=== PATIENT | male | born 1945 | race Caucasian/White ===

== ENCOUNTER 2018-09-11 11:36 | Inpatient (IN) ==
[2018-09-11] MEDS ORDERED: ATROPINE 1 MG/10 ML SYRINGE IV STA ×2 (12:13→12:32)
[2018-09-11 12:27] LABS: Basophils % 0.4 % (0.0-0.8); Eosinophils # 0.1 10*3/uL (0.0-0.87); Eosinophils % 0.9 % (0.00-10.9); Hematocrit 26.5 VOL% (42.0-52.0); Hemoglobin 8.5 GM/DL (14.0-18.0); Immature Granulocytes % 0.8 %; Immature Granulocytes Absolute 0.06 #; Lymphocytes # 1.1 10*3/uL (1.4-4.0); Lymphocytes % 13.4 % (21.2-54.2); Mean Corpuscular HGB Conc 32.1 GM/DL (32-36); Mean Corpuscular Hemoglobin 29 PG (27-34); Mean Corpuscular Volume 91.4 FL (87-102); Monocytes # 0.4 10*3/uL (0.11-0.8); Monocytes % 5.2 % (1.7-12.7); Neutrophils # 6.3 10*3/uL (1.4-7.4); Neutrophils % 79.3 % (38.7-73.9); Platelet Count 147 T/CUMM (130-400); Red Cell Distribution Width 15.9 % (9.3-17.3); White Blood Count 7.9 T/CUMM (4-12)
[2018-09-11 13:17] LABS: Osmolality,Calculated 269.1 MOS/KG (273-304); Potassium 4.7 MMOL/L (3.5-5.1); Thyroid Stimulating Hormone 7.02 uIU/ml (0.358-3.74)
[2018-09-11] MEDS ORDERED: ATROPINE 1 MG/10 ML SYRINGE IV PRN (14:27)
[2018-09-11] MEDS ORDERED: ONDANSETRON 4 MG/2 ML VIAL IV PRN (14:27)
[2018-09-11] MEDS ORDERED: ALBUTEROL/IPRATROPIUM 3 ML NEB RESP TX PRN (14:27)
[2018-09-11] MEDS ORDERED: ALBUTEROL 2.5 MG/3 ML NEB RESP TX PRN (14:27)
[2018-09-11] MEDS ORDERED: TEMAZEPAM 7.5 MG CAPSULE PO PRN (14:30)
[2018-09-11] MEDS ORDERED: SODIUM CHLORIDE 0.9% 1,000 ML IV PRN (14:34)
[2018-09-11 15:11] LABS: Apearance,Urine CLEAR (Clear); Bilirubin,Urine Negative (Negative); Blood, Urine Negative (Negative); Glucose,Urine (UA) Negative (Negative); Hyaline Casts,Urine 1 /LPF (0-3); Ketones,Urine Negative (Negative); Mucus,Urine Occasional /LPF (Occasional); Nitrite,Urine Negative (Negative); Protein,Urine Negative; RBC,Urine <1 /HPF (0-4); Urine Color Yellow (Yellow); Urine Specific Gravity 1.011 (1.001-1.035); Urine Urobilinogen < 2.0 EU/DL (0.2-1.0); WBC,Urine <1 /HPF (0-6)
[2018-09-11 16:13] LABS: Risk Ratio 2.98; VLDL CHOLESTEROL 18.6 MG/DL
[2018-09-11] MEDS: GLIMEPIRIDE 2 MG TABLET PO SCH (17:59)
[2018-09-11] MEDS: PREGABALIN 100 MG CAPSULE PO SCH ×3 (18:00→21:01)
[2018-09-11] MEDS ORDERED: ceFAZolin 1,000 MG in SYRINGE 1 EACH IV ONE (18:02)
[2018-09-11] MEDS ORDERED: ENOXAPARIN 40 MG/0.4 ML SYRINGE SUBCUT SCH (21:00)
[2018-09-11] MEDS: FUROSEMIDE 40 MG/4 ML VIAL IV SCH (21:00)
[2018-09-11] MEDS: DULoxetine 30 MG CAPSULE PO SCH (21:01)
[2018-09-11] MEDS: metOLazone 5 MG TABLET PO SCH (21:01)
[2018-09-11] MEDS: ROSUVASTATIN 20 MG TABLET PO SCH (21:01)
[2018-09-11] MEDS: LACTULOSE 20 GM/30 ML UDCUP PO SCH (21:02)
[2018-09-11] MEDS: TAMSULOSIN 0.4 MG CAPSULE PO SCH (21:02)
[2018-09-11] MEDS: oxyCODONE/ACETAMINOPHEN 5-325 MG TABLET PO PRN (21:02)
[2018-09-11] MEDS: DOCUSATE SODIUM 100 MG CAPSULE PO SCH (21:02)
[2018-09-12 05:23] LABS: Basophils # 0.1 10*3/uL (0.0-0.2); Basophils % 0.8 % (0.0-0.8); Eosinophils # 0.1 10*3/uL (0.0-0.87); Eosinophils % 1.5 % (0.00-10.9); Hematocrit 32.5 VOL% (42.0-52.0); Hemoglobin 10.4 GM/DL (14.0-18.0); Immature Granulocytes % 0.6 %; Immature Granulocytes Absolute 0.05 #; Lymphocytes # 1.5 10*3/uL (1.4-4.0); Mean Corpuscular Hemoglobin 29 PG (27-34); Mean Corpuscular Volume 90.3 FL (87-102); Mean Platelet Volume 10.2 FL (9.6-12.0); Monocytes # 0.6 10*3/uL (0.11-0.8); Monocytes % 7.1 % (1.7-12.7); Neutrophils # 5.5 10*3/uL (1.4-7.4); Platelet Count 167 T/CUMM (130-400); Red Cell Distribution Width 15.6 % (9.3-17.3); White Blood Count 7.8 T/CUMM (4-12)
[2018-09-12 05:33] LABS: INR 0.9
[2018-09-12 05:51] LABS: Calcium 8.7 MG/DL (8.5-10.1); Osmolality,Calculated 269.5 MOS/KG (273-304); Potassium 3.6 MMOL/L (3.5-5.1)
[2018-09-12 05:57] LABS: Bilirubin,Total 1.2 MG/DL (0.2-1.0); Calcium 8.7 MG/DL (8.5-10.1); Osmolality,Calculated 267.7 MOS/KG (273-304); Potassium 3.6 MMOL/L (3.5-5.1); Total Protein 6.6 G/DL (6.4-8.3)
[2018-09-12 06:00] LABS: Free T4 (Free Thyroxine) 1.08 NG/DL (0.76-1.46)
[2018-09-12] MEDS ORDERED: ceFAZolin 1,000 MG in SYRINGE 1 EACH IV ONE (06:30)
[2018-09-12] MEDS ORDERED: HEPARIN/NACL 0.9% 2 UNITS/ML 1,000 ML IV ONE (07:46)
[2018-09-12] MEDS ORDERED: LIDOCAINE 1% 20 ML VIAL ONE (07:46)
[2018-09-12] MEDS ORDERED: fentaNYL 100 MCG/2 ML VIAL ONE ×2 (08:08→08:25)
[2018-09-12] MEDS ORDERED: MIDAZOLAM 2 MG/2 ML VIAL ONE ×2 (08:08→08:25)
[2018-09-12] MEDS ORDERED: HEPARIN 5,000 UNIT/1 ML VIAL ONE (08:29)
[2018-09-12] MEDS ORDERED: HEPARIN/NACL 0.9% 2 UNITS/ML 500 ML IV ONE (09:04)
[2018-09-12] MEDS ORDERED: ACETAMINOPHEN 325 MG TABLET PO PRN (09:35)
[2018-09-12] MEDS ORDERED: GLUCAGON 1 MG VIAL IM PRN (09:35)
[2018-09-12] MEDS ORDERED: DEXTROSE 50% 25 GM/50 ML SYRINGE IV PRN (09:35)
[2018-09-12] MEDS: TAMSULOSIN 0.4 MG CAPSULE PO SCH ×2 (11:04→23:32)
[2018-09-12] MEDS: DOCUSATE SODIUM 100 MG CAPSULE PO SCH ×2 (11:04→23:34)
[2018-09-12] MEDS: DULoxetine 30 MG CAPSULE PO SCH ×2 (11:04→23:34)
[2018-09-12] MEDS: GLIMEPIRIDE 2 MG TABLET PO SCH ×2 (11:04→16:58)
[2018-09-12] MEDS: PREGABALIN 100 MG CAPSULE PO SCH ×3 (11:04→23:34)
[2018-09-12] MEDS: ASPIRIN EC 81 MG TABLET PO SCH (11:05)
[2018-09-12] MEDS: POLYETHYLENE GLYCOL POWDER 17 GM PACK PO SCH (11:05)
[2018-09-12] MEDS: LEVOTHYROXINE 75 MCG TABLET PO SCH (11:05)
[2018-09-12] MEDS: FUROSEMIDE 40 MG/4 ML VIAL IV SCH ×2 (11:13→16:58)
[2018-09-12] MEDS: METOPROLOL TARTRATE 50 MG TABLET PO SCH ×2 (11:28→23:33)
[2018-09-12] MEDS: metOLazone 5 MG TABLET PO SCH (12:13)
[2018-09-12] MEDS: IBUPROFEN 400 MG TABLET PO PRN ×2 (15:28→23:43)
[2018-09-12] MEDS: LACTULOSE 20 GM/30 ML UDCUP PO SCH ×2 (15:32→23:35)
[2018-09-12] MEDS: oxyCODONE/ACETAMINOPHEN 5-325 MG TABLET PO PRN (23:31)
[2018-09-12] MEDS: ROSUVASTATIN 20 MG TABLET PO SCH (23:32)
[2018-09-13] MEDS ORDERED: BUTALBITAL/ACETAMIN/CAFFEINE 50-325-40 MG TABLET PO PRN (01:52)
[2018-09-13 05:49] LABS: Basophils # 0.1 10*3/uL (0.0-0.2); Basophils % 0.7 % (0.0-0.8); Eosinophils # 0.1 10*3/uL (0.0-0.87); Eosinophils % 1.5 % (0.00-10.9); Hematocrit 35.6 VOL% (42.0-52.0); Hemoglobin 11.5 GM/DL (14.0-18.0); Immature Granulocytes Absolute 0.07 #; Lymphocytes # 1.6 10*3/uL (1.4-4.0); Lymphocytes % 21.6 % (21.2-54.2); Mean Corpuscular HGB Conc 32.3 GM/DL (32-36); Mean Corpuscular Hemoglobin 29 PG (27-34); Mean Corpuscular Volume 88.6 FL (87-102); Mean Platelet Volume 9.8 FL (9.6-12.0); Monocytes # 0.8 10*3/uL (0.11-0.8); Monocytes % 11.4 % (1.7-12.7); Neutrophils # 4.6 10*3/uL (1.4-7.4); Neutrophils % 63.8 % (38.7-73.9); Platelet Count 172 T/CUMM (130-400); Red Blood Count 4.02 MC/CUMM (3.8-5.5); Red Cell Distribution Width 15.4 % (9.3-17.3); White Blood Count 7.3 T/CUMM (4-12)
[2018-09-13 05:53] LABS: Calcium 8.8 MG/DL (8.5-10.1); Osmolality,Calculated 259.8 MOS/KG (273-304); Potassium 2.9 MMOL/L (3.5-5.1)
[2018-09-13] MEDS: LEVOTHYROXINE 75 MCG TABLET PO SCH (06:32)
[2018-09-13] MEDS: IBUPROFEN 400 MG TABLET PO PRN (06:33)
[2018-09-13] MEDS: POTASSIUM CHLORIDE 20 MEQ TABLET PO SCH ×2 (08:07→11:04)
[2018-09-13] MEDS: DULoxetine 30 MG CAPSULE PO SCH (09:22)
[2018-09-13] MEDS: ASPIRIN EC 81 MG TABLET PO SCH (09:22)
[2018-09-13] MEDS: LACTULOSE 20 GM/30 ML UDCUP PO SCH (09:22)
[2018-09-13] MEDS: TAMSULOSIN 0.4 MG CAPSULE PO SCH (09:22)
[2018-09-13] MEDS: GLIMEPIRIDE 2 MG TABLET PO SCH (09:22)
[2018-09-13] MEDS: PREGABALIN 100 MG CAPSULE PO SCH (09:22)
[2018-09-13] MEDS: DOCUSATE SODIUM 100 MG CAPSULE PO SCH (09:22)
[2018-09-13] MEDS: METOPROLOL TARTRATE 50 MG TABLET PO SCH (09:22)
[2018-09-13] MEDS: POLYETHYLENE GLYCOL POWDER 17 GM PACK PO SCH (09:23)
[2018-09-13] MEDS ORDERED: FUROSEMIDE 20 MG TABLET PO SCH (12:00)
[2018-09-13] MEDS ORDERED: DABIGATRAN 75 MG CAPSULE PO SCH (12:00)
[2018-09-13 12:05] VITALS: BP 140/83
[2018-09-13] MEDS: oxyCODONE/ACETAMINOPHEN 5-325 MG TABLET PO PRN (12:16)
== END 2018-09-13 13:37 | disposition home or self-care (01) | DRG 228 ==
LOC: N.ED 11:36 → SUATTDRO 14:27 → N.EDINP 14:27 → N.CC 16:14 → N.TELES 09-12 10:22
PROVIDERS: ADMIT Family Medicine; ATTEND Internal Medicine
PROC: CLMICRA (2018-09-12 08:15)

== ENCOUNTER 2018-09-14 10:04 | Observation (INO) ==
[2018-09-14] MEDS ORDERED: FUROSEMIDE 100 MG/10 ML VIAL IV STA (10:31)
[2018-09-14] MEDS ORDERED: ONDANSETRON 4 MG/2 ML VIAL IV STA (10:31)
[2018-09-14 11:02] LABS: Basophils # 0.1 10*3/uL (0.0-0.2); Basophils % 0.8 % (0.0-0.8); Eosinophils # 0.1 10*3/uL (0.0-0.87); Eosinophils % 1.5 % (0.00-10.9); Hematocrit 38.1 VOL% (42.0-52.0); Hemoglobin 12.8 GM/DL (14.0-18.0); Immature Granulocytes % 3.9 %; Immature Granulocytes Absolute 0.28 #; Lymphocytes # 1.6 10*3/uL (1.4-4.0); Lymphocytes % 22.9 % (21.2-54.2); Mean Corpuscular HGB Conc 33.6 GM/DL (32-36); Mean Corpuscular Hemoglobin 29 PG (27-34); Mean Platelet Volume 9.8 FL (9.6-12.0); Monocytes # 0.8 10*3/uL (0.11-0.8); Monocytes % 10.5 % (1.7-12.7); Neutrophils # 4.3 10*3/uL (1.4-7.4); Neutrophils % 60.4 % (38.7-73.9); Platelet Count 200 T/CUMM (130-400); Red Blood Count 4.48 MC/CUMM (3.8-5.5); Red Cell Distribution Width 14.8 % (9.3-17.3); White Blood Count 7.1 T/CUMM (4-12)
[2018-09-14 11:12] LABS: PT Patient Result 10.9 SECS; Partial Thromboplastin Time 30.1 SECS (0-40)
[2018-09-14 11:22] LABS: ABG Base Excess 8.2 MMOL/L (-2.5-2.5); ABG HCO3 31.8 MMOL/L (20-26); ABG Oxygen Saturation 94.3 % (95-100); ABG PCO2 30.5 MM HG (35-48); ABG PO2 62.9 MM HG (80-95); ABG TCO2 25.5 MMOL/L (23-27)
[2018-09-14 11:26] LABS: ABG PH 7.595 (7.35-7.45)
[2018-09-14 11:26] LABS: Albumin 3.7 G/DL (3.4-5.0); Bilirubin,Total 0.7 MG/DL (0.2-1.0); Calcium 9.3 MG/DL (8.5-10.1); Osmolality,Calculated 250.8 MOS/KG (273-304); Potassium 2.9 MMOL/L (3.5-5.1); Total Protein 7.3 G/DL (6.4-8.3)
[2018-09-14] MEDS ORDERED: BISACODYL 5 MG TABLET PO PRN (14:15)
[2018-09-14] MEDS ORDERED: MAGNESIUM SULF RIDER 2 GM in PREMIX 1 EACH IV PRN ×2 (14:15→14:26)
[2018-09-14] MEDS ORDERED: MAGNESIUM SULF RIDER 4 GM in PREMIX 1 EACH IV PRN ×2 (14:15→14:26)
[2018-09-14] MEDS ORDERED: guaiFENesin/DM ER 600-30 MG TABLET PO PRN (14:15)
[2018-09-14] MEDS ORDERED: KETOROLAC 30 MG/1 ML VIAL IV ONE (17:00)
[2018-09-14] MEDS ORDERED: MAGNESIUM SULF RIDER 2 GM in PREMIX 1 EACH IV ONE (17:05)
[2018-09-14] MEDS ORDERED: DEXTROSE 50% 25 GM/50 ML SYRINGE IV PRN (17:12)
[2018-09-14] MEDS ORDERED: GLUCAGON 1 MG VIAL IM PRN (17:12)
[2018-09-14] MEDS: POTASSIUM CHLORIDE 20 MEQ TABLET PO PRN ×2 (17:30→19:54)
[2018-09-14 18:29] LABS: Troponin I 0.316 NG/ML (0.00-0.045)
[2018-09-14] MEDS ORDERED: ENOXAPARIN 40 MG/0.4 ML SYRINGE SUBCUT SCH (21:00)
[2018-09-14 21:39] LABS: Troponin I 0.303 NG/ML (0.00-0.045)
[2018-09-14] MEDS: LACTULOSE 20 GM/30 ML UDCUP PO SCH (21:57)
[2018-09-14] MEDS: METOPROLOL TARTRATE 50 MG TABLET PO SCH (21:58)
[2018-09-14] MEDS: TAMSULOSIN 0.4 MG CAPSULE PO SCH (21:59)
[2018-09-14] MEDS: GLIMEPIRIDE 2 MG TABLET PO SCH (21:59)
[2018-09-14] MEDS: POTASSIUM CHLORIDE 20 MEQ TABLET PO SCH (21:59)
[2018-09-14] MEDS: ROSUVASTATIN 20 MG TABLET PO SCH (21:59)
[2018-09-14] MEDS: INSULIN LISPRO 100 UNIT/ML SUBCUT SCH (22:02)
[2018-09-14] MEDS: TEMAZEPAM 7.5 MG CAPSULE PO PRN (22:46)
[2018-09-15] MEDS: ACETAMINOPHEN 325 MG TABLET PO PRN ×2 (01:12→23:45)
[2018-09-15 04:55] LABS: ABG Base Excess 7.2 MMOL/L (-2.5-2.5); ABG HCO3 30.9 MMOL/L (20-26); ABG Oxygen Saturation 97.3 % (95-100); ABG PCO2 37.6 MM HG (35-48); ABG PH 7.516 (7.35-7.45); ABG PO2 90.5 MM HG (80-95); ABG TCO2 26.4 MMOL/L (23-27); Allen Test Positive
[2018-09-15 05:11] LABS: Basophils # 0.1 10*3/uL (0.0-0.2); Basophils % 0.8 % (0.0-0.8); Eosinophils # 0.1 10*3/uL (0.0-0.87); Eosinophils % 1.6 % (0.00-10.9); Hematocrit 37.8 VOL% (42.0-52.0); Hemoglobin 12.8 GM/DL (14.0-18.0); Immature Granulocytes % 2.2 %; Immature Granulocytes Absolute 0.18 #; Lymphocytes # 1.8 10*3/uL (1.4-4.0); Lymphocytes % 21.8 % (21.2-54.2); Mean Corpuscular HGB Conc 33.9 GM/DL (32-36); Mean Corpuscular Hemoglobin 29 PG (27-34); Mean Corpuscular Volume 85.5 FL (87-102); Mean Platelet Volume 9.5 FL (9.6-12.0); Monocytes # 1.1 10*3/uL (0.11-0.8); Monocytes % 13.1 % (1.7-12.7); Neutrophils % 60.5 % (38.7-73.9); Platelet Count 212 T/CUMM (130-400); Red Blood Count 4.42 MC/CUMM (3.8-5.5); Red Cell Distribution Width 14.9 % (9.3-17.3); White Blood Count 8.3 T/CUMM (4-12)
[2018-09-15 05:35] LABS: Calcium 8.6 MG/DL (8.5-10.1); Osmolality,Calculated 250.6 MOS/KG (273-304); Potassium 3.7 MMOL/L (3.5-5.1)
[2018-09-15] MEDS: LEVOTHYROXINE 75 MCG TABLET PO SCH (06:13)
[2018-09-15] MEDS: INSULIN LISPRO 100 UNIT/ML SUBCUT SCH ×4 (08:58→20:46)
[2018-09-15] MEDS ORDERED: POTASSIUM CHLORIDE 20 MEQ TABLET PO SCH (09:00)
[2018-09-15] MEDS ORDERED: PANTOPRAZOLE 40 MG TABLET PO SCH (09:00)
[2018-09-15] MEDS: LACTULOSE 20 GM/30 ML UDCUP PO SCH ×2 (09:03→20:47)
[2018-09-15] MEDS: RAMIPRIL 2.5 MG CAPSULE PO SCH (09:04)
[2018-09-15] MEDS: GLIMEPIRIDE 2 MG TABLET PO SCH ×2 (09:04→20:46)
[2018-09-15] MEDS: ASPIRIN EC 81 MG TABLET PO SCH (09:04)
[2018-09-15] MEDS: POTASSIUM CHLORIDE 20 MEQ TABLET PO SCH ×2 (09:04→20:46)
[2018-09-15] MEDS: FOLIC ACID 1 MG TABLET PO SCH (09:04)
[2018-09-15] MEDS: predniSONE 5 MG TABLET PO SCH (09:05)
[2018-09-15] MEDS: PANTOPRAZOLE 40 MG TABLET PO SCH (09:08)
[2018-09-15] MEDS: METOPROLOL TARTRATE 50 MG TABLET PO SCH ×2 (09:08→20:47)
[2018-09-15] MEDS ORDERED: DEXTROSE 50% 25 GM/50 ML VIAL IV PRN (10:11)
[2018-09-15] MEDS ORDERED: GLUCAGON 1 MG VIAL IM PRN (10:11)
[2018-09-15] MEDS: POLYETHYLENE GLYCOL POWDER 17 GM PACK PO SCH (11:24)
[2018-09-15] MEDS ORDERED: ALUM/MAG/SIMETH/LIDO VISC 1:1 30 ML BOTTLE PO ONE (17:40)
[2018-09-15] MEDS: oxyCODONE/ACETAMINOPHEN 5-325 MG TABLET PO PRN ×2 (17:55→23:45)
[2018-09-15 18:35] LABS: Troponin I 0.163 NG/ML (0.00-0.045)
[2018-09-15] MEDS: ZALEPLON 5 MG CAPSULE PO PRN (20:46)
[2018-09-15] MEDS: ROSUVASTATIN 20 MG TABLET PO SCH (20:46)
[2018-09-15] MEDS: TEMAZEPAM 7.5 MG CAPSULE PO PRN (20:46)
[2018-09-15] MEDS: TAMSULOSIN 0.4 MG CAPSULE PO SCH (20:47)
[2018-09-15] MEDS: DABIGATRAN 75 MG CAPSULE PO SCH (20:47)
[2018-09-16 04:37] LABS: Basophils # 0.1 10*3/uL (0.0-0.2); Basophils % 0.7 % (0.0-0.8); Eosinophils # 0.1 10*3/uL (0.0-0.87); Hematocrit 40.5 VOL% (42.0-52.0); Hemoglobin 13.7 GM/DL (14.0-18.0); Immature Granulocytes Absolute 0.24 #; Lymphocytes # 1.6 10*3/uL (1.4-4.0); Lymphocytes % 20.2 % (21.2-54.2); Mean Corpuscular HGB Conc 33.8 GM/DL (32-36); Mean Corpuscular Hemoglobin 29 PG (27-34); Mean Platelet Volume 9.5 FL (9.6-12.0); Monocytes # 1.3 10*3/uL (0.11-0.8); Monocytes % 16.1 % (1.7-12.7); Neutrophils # 4.7 10*3/uL (1.4-7.4); Platelet Count 206 T/CUMM (130-400); Red Blood Count 4.71 MC/CUMM (3.8-5.5); White Blood Count 8.1 T/CUMM (4-12)
[2018-09-16 05:04] LABS: Calcium 8.9 MG/DL (8.5-10.1); Osmolality,Calculated 250.6 MOS/KG (273-304); Potassium 4.3 MMOL/L (3.5-5.1)
[2018-09-16 05:05] LABS: Atypical Lymphocytes Few; Eosinophils 2 % (0-10); Hypochromasia 1+; Lymphocytes 24 % (20-55); Metamyelocytes 1 %; Segmented Neutrophils 59 % (50-85); Total Cells Counted 100
[2018-09-16 05:06] LABS: Microcytosis 1+
[2018-09-16] MEDS: LEVOTHYROXINE 75 MCG TABLET PO SCH (06:02)
[2018-09-16] MEDS ORDERED: SODIUM CHLORIDE 0.9% 1,000 ML IV SCH (08:00)
[2018-09-16] MEDS: INSULIN LISPRO 100 UNIT/ML SUBCUT SCH ×4 (08:59→21:52)
[2018-09-16] MEDS: PANTOPRAZOLE 40 MG TABLET PO SCH (09:01)
[2018-09-16] MEDS: LACTULOSE 20 GM/30 ML UDCUP PO SCH ×3 (09:01→21:53)
[2018-09-16] MEDS: POLYETHYLENE GLYCOL POWDER 17 GM PACK PO SCH (09:01)
[2018-09-16] MEDS: METOPROLOL TARTRATE 50 MG TABLET PO SCH ×2 (09:02→21:47)
[2018-09-16] MEDS: ASPIRIN EC 81 MG TABLET PO SCH (09:02)
[2018-09-16] MEDS: FOLIC ACID 1 MG TABLET PO SCH (09:02)
[2018-09-16] MEDS: POTASSIUM CHLORIDE 20 MEQ TABLET PO SCH ×2 (09:02→21:48)
[2018-09-16] MEDS: GLIMEPIRIDE 2 MG TABLET PO SCH ×2 (09:02→21:46)
[2018-09-16] MEDS: predniSONE 5 MG TABLET PO SCH (09:16)
[2018-09-16] MEDS: RAMIPRIL 2.5 MG CAPSULE PO SCH (09:16)
[2018-09-16] MEDS: DABIGATRAN 75 MG CAPSULE PO SCH ×2 (09:16→21:47)
[2018-09-16 09:29] LABS: Albumin 2.9 G/DL (3.4-5.0); Bilirubin,Direct 0.1 MG/DL (0.0-0.20); Bilirubin,Indirect 0.5 MG/DL (0.0-1.0); Bilirubin,Total 0.6 MG/DL (0.2-1.0); Total Protein 7.5 G/DL (6.4-8.3)
[2018-09-16] MEDS ORDERED: SODIUM CHLORIDE 0.45% 1,000 ML IV SCH (12:00)
[2018-09-16] MEDS: ROSUVASTATIN 20 MG TABLET PO SCH (21:47)
[2018-09-16] MEDS: TAMSULOSIN 0.4 MG CAPSULE PO SCH (21:47)
[2018-09-16] MEDS: oxyCODONE/ACETAMINOPHEN 5-325 MG TABLET PO PRN (23:22)
[2018-09-16] MEDS: TEMAZEPAM 7.5 MG CAPSULE PO PRN (23:23)
[2018-09-17] MEDS: ACETAMINOPHEN 325 MG TABLET PO PRN (02:49)
[2018-09-17 04:11] LABS: Basophils # 0.1 10*3/uL (0.0-0.2); Basophils % 0.9 % (0.0-0.8); Eosinophils # 0.1 10*3/uL (0.0-0.87); Eosinophils % 1.3 % (0.00-10.9); Hematocrit 41.6 VOL% (42.0-52.0); Hemoglobin 13.8 GM/DL (14.0-18.0); Immature Granulocytes % 3.5 %; Immature Granulocytes Absolute 0.27 #; Lymphocytes # 1.8 10*3/uL (1.4-4.0); Lymphocytes % 23.6 % (21.2-54.2); Mean Corpuscular HGB Conc 33.2 GM/DL (32-36); Mean Corpuscular Hemoglobin 29 PG (27-34); Mean Platelet Volume 9.2 FL (9.6-12.0); Monocytes # 1.1 10*3/uL (0.11-0.8); Monocytes % 14.2 % (1.7-12.7); Neutrophils # 4.4 10*3/uL (1.4-7.4); Neutrophils % 56.5 % (38.7-73.9); Platelet Count 202 T/CUMM (130-400); Red Blood Count 4.78 MC/CUMM (3.8-5.5); Red Cell Distribution Width 15.3 % (9.3-17.3); White Blood Count 7.7 T/CUMM (4-12)
[2018-09-17 04:21] LABS: Calcium 8.8 MG/DL (8.5-10.1); Osmolality,Calculated 252.5 MOS/KG (273-304); Potassium 4.3 MMOL/L (3.5-5.1)
[2018-09-17] MEDS: LEVOTHYROXINE 100 MCG TABLET PO SCH (06:56)
[2018-09-17] MEDS: oxyCODONE/ACETAMINOPHEN 5-325 MG TABLET PO PRN ×4 (06:56→20:19)
[2018-09-17] MEDS: POTASSIUM CHLORIDE 20 MEQ TABLET PO SCH ×2 (09:29→20:20)
[2018-09-17] MEDS: RAMIPRIL 2.5 MG CAPSULE PO SCH (09:30)
[2018-09-17] MEDS: DABIGATRAN 75 MG CAPSULE PO SCH ×2 (09:30→20:18)
[2018-09-17] MEDS: PANTOPRAZOLE 40 MG TABLET PO SCH (09:30)
[2018-09-17] MEDS: POLYETHYLENE GLYCOL POWDER 17 GM PACK PO SCH (09:30)
[2018-09-17] MEDS: FOLIC ACID 1 MG TABLET PO SCH (09:30)
[2018-09-17] MEDS: GLIMEPIRIDE 2 MG TABLET PO SCH ×2 (09:30→20:56)
[2018-09-17] MEDS: METOPROLOL TARTRATE 50 MG TABLET PO SCH ×2 (09:30→20:20)
[2018-09-17] MEDS: predniSONE 5 MG TABLET PO SCH (09:30)
[2018-09-17] MEDS: LACTULOSE 20 GM/30 ML UDCUP PO SCH ×2 (09:31→20:31)
[2018-09-17] MEDS: ASPIRIN EC 81 MG TABLET PO SCH (09:31)
[2018-09-17] MEDS: INSULIN LISPRO 100 UNIT/ML SUBCUT SCH ×4 (09:32→20:59)
[2018-09-17] MEDS: cloNIDine 0.1 MG TABLET PO PRN (12:42)
[2018-09-17] MEDS: ONDANSETRON 4 MG/2 ML VIAL IV PRN (17:31)
[2018-09-17] MEDS: TAMSULOSIN 0.4 MG CAPSULE PO SCH (20:20)
[2018-09-17] MEDS: ROSUVASTATIN 20 MG TABLET PO SCH (20:20)
[2018-09-17] MEDS: TEMAZEPAM 7.5 MG CAPSULE PO PRN (20:20)
[2018-09-18] MEDS: oxyCODONE/ACETAMINOPHEN 5-325 MG TABLET PO PRN ×5 (01:23→21:01)
[2018-09-18] MEDS: LEVOTHYROXINE 100 MCG TABLET PO SCH (07:50)
[2018-09-18] MEDS: INSULIN LISPRO 100 UNIT/ML SUBCUT SCH ×4 (09:52→21:14)
[2018-09-18] MEDS: GLIMEPIRIDE 2 MG TABLET PO SCH ×2 (09:53→21:00)
[2018-09-18] MEDS: FOLIC ACID 1 MG TABLET PO SCH (09:53)
[2018-09-18] MEDS: predniSONE 5 MG TABLET PO SCH (09:53)
[2018-09-18] MEDS: ASPIRIN EC 81 MG TABLET PO SCH (09:53)
[2018-09-18] MEDS: METOPROLOL TARTRATE 50 MG TABLET PO SCH ×2 (09:53→21:18)
[2018-09-18] MEDS: DABIGATRAN 75 MG CAPSULE PO SCH ×2 (09:53→21:02)
[2018-09-18] MEDS: PANTOPRAZOLE 40 MG TABLET PO SCH (09:53)
[2018-09-18] MEDS: RAMIPRIL 2.5 MG CAPSULE PO SCH (09:53)
[2018-09-18] MEDS: cloNIDine 0.1 MG TABLET PO PRN (09:54)
[2018-09-18] MEDS: LACTULOSE 20 GM/30 ML UDCUP PO SCH ×2 (09:54→21:18)
[2018-09-18] MEDS: POLYETHYLENE GLYCOL POWDER 17 GM PACK PO SCH (09:54)
[2018-09-18] MEDS: POTASSIUM CHLORIDE 20 MEQ TABLET PO SCH ×2 (10:04→21:02)
[2018-09-18] MEDS: ONDANSETRON 4 MG/2 ML VIAL IV PRN (20:57)
[2018-09-18] MEDS: TEMAZEPAM 7.5 MG CAPSULE PO PRN (21:00)
[2018-09-18] MEDS: ROSUVASTATIN 20 MG TABLET PO SCH (21:02)
[2018-09-18] MEDS: TAMSULOSIN 0.4 MG CAPSULE PO SCH (21:03)
[2018-09-18] MEDS: ZALEPLON 5 MG CAPSULE PO PRN (22:34)
[2018-09-19] MEDS: oxyCODONE/ACETAMINOPHEN 5-325 MG TABLET PO PRN ×4 (02:58→23:20)
[2018-09-19] MEDS: LEVOTHYROXINE 100 MCG TABLET PO SCH (06:11)
[2018-09-19 08:23] LABS: Calcium 8.9 MG/DL (8.5-10.1); Osmolality,Calculated 258.1 MOS/KG (273-304); Potassium 4.6 MMOL/L (3.5-5.1)
[2018-09-19] MEDS: INSULIN LISPRO 100 UNIT/ML SUBCUT SCH ×4 (09:05→20:27)
[2018-09-19] MEDS: LACTULOSE 20 GM/30 ML UDCUP PO SCH ×2 (09:07→20:29)
[2018-09-19] MEDS: ONDANSETRON 4 MG/2 ML VIAL IV PRN (09:07)
[2018-09-19] MEDS: METOPROLOL TARTRATE 50 MG TABLET PO SCH ×2 (09:08→20:22)
[2018-09-19] MEDS: POTASSIUM CHLORIDE 20 MEQ TABLET PO SCH ×2 (09:08→20:25)
[2018-09-19] MEDS: GLIMEPIRIDE 2 MG TABLET PO SCH ×2 (09:08→20:22)
[2018-09-19] MEDS: FOLIC ACID 1 MG TABLET PO SCH (09:09)
[2018-09-19] MEDS: RAMIPRIL 2.5 MG CAPSULE PO SCH (09:09)
[2018-09-19] MEDS: ASPIRIN EC 81 MG TABLET PO SCH (09:09)
[2018-09-19] MEDS: POLYETHYLENE GLYCOL POWDER 17 GM PACK PO SCH (09:15)
[2018-09-19] MEDS: predniSONE 5 MG TABLET PO SCH (09:15)
[2018-09-19] MEDS: DABIGATRAN 75 MG CAPSULE PO SCH ×2 (09:15→20:23)
[2018-09-19] MEDS: PANTOPRAZOLE 40 MG TABLET PO SCH (09:18)
[2018-09-19] MEDS: RAMIPRIL 5 MG CAPSULE PO SCH (13:23)
[2018-09-19] MEDS ORDERED: SODIUM CHLORIDE 0.9% 1,000 ML IV SCH (15:30)
[2018-09-19] MEDS ORDERED: amLODIPine 5 MG TABLET PO ONE (19:25)
[2018-09-19] MEDS: ROSUVASTATIN 20 MG TABLET PO SCH (20:22)
[2018-09-19] MEDS: TAMSULOSIN 0.4 MG CAPSULE PO SCH (20:22)
[2018-09-19] MEDS: TEMAZEPAM 7.5 MG CAPSULE PO PRN (20:23)
[2018-09-20 04:42] LABS: Calcium 8.5 MG/DL (8.5-10.1); Osmolality,Calculated 262.7 MOS/KG (273-304); Potassium 4.6 MMOL/L (3.5-5.1)
[2018-09-20] MEDS: LEVOTHYROXINE 100 MCG TABLET PO SCH (06:23)
[2018-09-20] MEDS ORDERED: MAGNESIUM SULF RIDER 2 GM in PREMIX 1 EACH IV ONE (07:28)
[2018-09-20] MEDS: INSULIN LISPRO 100 UNIT/ML SUBCUT SCH ×4 (08:30→21:23)
[2018-09-20] MEDS: LACTULOSE 20 GM/30 ML UDCUP PO SCH ×2 (08:32→21:23)
[2018-09-20] MEDS: GLIMEPIRIDE 2 MG TABLET PO SCH ×2 (08:32→21:17)
[2018-09-20] MEDS: RAMIPRIL 5 MG CAPSULE PO SCH (08:32)
[2018-09-20] MEDS: METOPROLOL TARTRATE 50 MG TABLET PO SCH ×2 (08:32→21:18)
[2018-09-20] MEDS: FOLIC ACID 1 MG TABLET PO SCH (08:32)
[2018-09-20] MEDS: POLYETHYLENE GLYCOL POWDER 17 GM PACK PO SCH (08:33)
[2018-09-20] MEDS: ASPIRIN EC 81 MG TABLET PO SCH (08:33)
[2018-09-20] MEDS: amLODIPine 5 MG TABLET PO SCH (08:34)
[2018-09-20] MEDS: PANTOPRAZOLE 40 MG TABLET PO SCH (08:34)
[2018-09-20] MEDS: DABIGATRAN 75 MG CAPSULE PO SCH ×2 (08:34→21:19)
[2018-09-20] MEDS: predniSONE 5 MG TABLET PO SCH (08:40)
[2018-09-20] MEDS: POTASSIUM CHLORIDE 20 MEQ TABLET PO SCH ×2 (12:07→21:20)
[2018-09-20] MEDS: oxyCODONE/ACETAMINOPHEN 5-325 MG TABLET PO PRN (12:08)
[2018-09-20] MEDS: CHOLECALCIFEROL 1,000 UNIT TABLET PO SCH (17:03)
[2018-09-20] MEDS ORDERED: KETOROLAC 30 MG/1 ML VIAL IV ONE (19:54)
[2018-09-20] MEDS ORDERED: IBUPROFEN 400 MG TABLET PO ONE (19:54)
[2018-09-20] MEDS: TEMAZEPAM 7.5 MG CAPSULE PO PRN (21:17)
[2018-09-20] MEDS: TAMSULOSIN 0.4 MG CAPSULE PO SCH (21:18)
[2018-09-20] MEDS: ROSUVASTATIN 20 MG TABLET PO SCH (21:18)
[2018-09-21 05:36] LABS: Calcium 8.7 MG/DL (8.5-10.1); Osmolality,Calculated 259.2 MOS/KG (273-304); Potassium 5.3 MMOL/L (3.5-5.1)
[2018-09-21] MEDS: LEVOTHYROXINE 100 MCG TABLET PO SCH (06:31)
[2018-09-21] MEDS ORDERED: SODIUM CHLORIDE 0.9% 1,000 ML IV SCH (07:30)
[2018-09-21] MEDS: CHOLECALCIFEROL 1,000 UNIT TABLET PO SCH (08:29)
[2018-09-21] MEDS: DABIGATRAN 75 MG CAPSULE PO SCH ×2 (08:30→21:10)
[2018-09-21] MEDS: amLODIPine 5 MG TABLET PO SCH (08:30)
[2018-09-21] MEDS: METOPROLOL TARTRATE 50 MG TABLET PO SCH ×2 (08:30→21:10)
[2018-09-21] MEDS: FOLIC ACID 1 MG TABLET PO SCH (08:30)
[2018-09-21] MEDS: PANTOPRAZOLE 40 MG TABLET PO SCH (08:30)
[2018-09-21] MEDS: GLIMEPIRIDE 2 MG TABLET PO SCH ×2 (08:30→21:09)
[2018-09-21] MEDS: predniSONE 5 MG TABLET PO SCH (08:30)
[2018-09-21] MEDS: ASPIRIN EC 81 MG TABLET PO SCH (08:30)
[2018-09-21] MEDS: DOCUSATE SODIUM 100 MG CAPSULE PO PRN (08:30)
[2018-09-21] MEDS: oxyCODONE/ACETAMINOPHEN 5-325 MG TABLET PO PRN ×4 (08:31→21:09)
[2018-09-21] MEDS: RAMIPRIL 5 MG CAPSULE PO SCH (08:32)
[2018-09-21] MEDS: POLYETHYLENE GLYCOL POWDER 17 GM PACK PO SCH (08:33)
[2018-09-21] MEDS: LACTULOSE 20 GM/30 ML UDCUP PO SCH ×2 (08:33→21:20)
[2018-09-21] MEDS: POTASSIUM CHLORIDE 20 MEQ TABLET PO SCH ×2 (08:33→21:09)
[2018-09-21] MEDS: INSULIN LISPRO 100 UNIT/ML SUBCUT SCH ×4 (08:34→21:22)
[2018-09-21] MEDS ORDERED: METHOTREXATE 2.5 MG TABLET PO SCH (09:00)
[2018-09-21] MEDS: diphenhydrAMINE CAP 25 MG CAPSULE PO PRN ×2 (12:03→21:09)
[2018-09-21] MEDS ORDERED: SUMAtriptan 25 MG TABLET PO ONE (13:57)
[2018-09-21] MEDS: ZALEPLON 5 MG CAPSULE PO PRN (21:09)
[2018-09-21] MEDS: TEMAZEPAM 7.5 MG CAPSULE PO PRN (21:09)
[2018-09-21] MEDS: ROSUVASTATIN 20 MG TABLET PO SCH (21:09)
[2018-09-21] MEDS: TAMSULOSIN 0.4 MG CAPSULE PO SCH (21:10)
[2018-09-21] MEDS: ACETAMINOPHEN 325 MG TABLET PO PRN (23:16)
[2018-09-22] MEDS: oxyCODONE/ACETAMINOPHEN 5-325 MG TABLET PO PRN ×4 (04:50→16:48)
[2018-09-22] MEDS: diphenhydrAMINE CAP 25 MG CAPSULE PO PRN ×2 (04:50→13:07)
[2018-09-22 05:26] LABS: Calcium 8.8 MG/DL (8.5-10.1); Osmolality,Calculated 265.4 MOS/KG (273-304); Potassium 4.8 MMOL/L (3.5-5.1)
[2018-09-22] MEDS: LEVOTHYROXINE 100 MCG TABLET PO SCH (06:55)
[2018-09-22] MEDS: RAMIPRIL 5 MG CAPSULE PO SCH (08:52)
[2018-09-22] MEDS: POTASSIUM CHLORIDE 20 MEQ TABLET PO SCH (08:53)
[2018-09-22] MEDS: GLIMEPIRIDE 2 MG TABLET PO SCH (08:54)
[2018-09-22] MEDS: predniSONE 5 MG TABLET PO SCH (08:54)
[2018-09-22] MEDS: PANTOPRAZOLE 40 MG TABLET PO SCH (08:54)
[2018-09-22] MEDS: DOCUSATE SODIUM 100 MG CAPSULE PO PRN (08:54)
[2018-09-22] MEDS: DABIGATRAN 75 MG CAPSULE PO SCH (08:54)
[2018-09-22] MEDS: METOPROLOL TARTRATE 50 MG TABLET PO SCH (08:54)
[2018-09-22] MEDS: FOLIC ACID 1 MG TABLET PO SCH (08:54)
[2018-09-22] MEDS: amLODIPine 5 MG TABLET PO SCH (08:54)
[2018-09-22] MEDS: CHOLECALCIFEROL 1,000 UNIT TABLET PO SCH (08:54)
[2018-09-22] MEDS: ASPIRIN EC 81 MG TABLET PO SCH (08:54)
[2018-09-22] MEDS: POLYETHYLENE GLYCOL POWDER 17 GM PACK PO SCH (08:56)
[2018-09-22] MEDS: INSULIN LISPRO 100 UNIT/ML SUBCUT SCH ×2 (08:56→13:09)
[2018-09-22] MEDS: LACTULOSE 20 GM/30 ML UDCUP PO SCH (08:56)
[2018-09-22 12:51] VITALS: BP 142/73
[2018-09-22] MEDS: SUMAtriptan 25 MG TABLET PO PRN ×2 (13:07→14:59)
== END 2018-09-22 17:30 | disposition home health service (06) ==
LOC: N.ED 10:04 → N.EDINP 10:04 → N.TELES 16:44
PROVIDERS: ADMIT Internal Medicine Clinical Cardiac Electrophysiology; ATTEND Internal Medicine Clinical Cardiac Electrophysiology

== ENCOUNTER 2018-12-09 17:17 | Inpatient (IN) ==
[2018-12-09 20:48] LABS: Basophils # 0.1 10*3/uL (0.0-0.2); Basophils % 0.7 % (0.0-0.8); Eosinophils # 0.2 10*3/uL (0.0-0.87); Eosinophils % 2.6 % (0.00-10.9); Hematocrit 32.1 VOL% (42.0-52.0); Hemoglobin 10.5 GM/DL (14.0-18.0); Immature Granulocytes % 0.4 %; Immature Granulocytes Absolute 0.03 #; Lymphocytes # 1.2 10*3/uL (1.4-4.0); Lymphocytes % 16.1 % (21.2-54.2); Mean Corpuscular HGB Conc 32.7 GM/DL (32-36); Mean Corpuscular Volume 88.7 FL (87-102); Mean Platelet Volume 9.8 FL (9.6-12.0); Monocytes % 11.9 % (1.7-12.7); Neutrophils % 68.3 % (38.7-73.9); Platelet Count 250 T/CUMM (130-400); Red Blood Count 3.62 MC/CUMM (3.8-5.5); Red Cell Distribution Width 15.8 % (9.3-17.3); White Blood Count 7.6 T/CUMM (4-12)
[2018-12-09 21:09] LABS: Albumin 2.9 G/DL (3.4-5.0); Bilirubin,Total 0.6 MG/DL (0.2-1.0); Calcium 8.1 MG/DL (8.5-10.1); Osmolality,Calculated 265.4 MOS/KG (273-304); Total Protein 6.6 G/DL (6.4-8.3)
[2018-12-09 21:16] LABS: Apearance,Urine CLEAR (Clear); Bacteria,Urine Occasional /HPF (Few); Bilirubin,Urine Negative (Negative); Blood, Urine Small mg/dL (Negative); Glucose,Urine (UA) Negative (Negative); Hyaline Casts,Urine 5 /LPF (0-3); Ketones,Urine Negative (Negative); Mucus,Urine Occasional /LPF (Occasional); Nitrite,Urine Negative (Negative); Protein,Urine Negative; RBC,Urine 3 /HPF (0-4); Urine Color Yellow (Yellow); WBC,Urine 25 /HPF (0-6)
[2018-12-09] MEDS ORDERED: ONDANSETRON 4 MG/2 ML VIAL IV PRN (21:34)
[2018-12-09] MEDS ORDERED: BISACODYL 5 MG TABLET PO PRN (21:34)
[2018-12-09] MEDS ORDERED: NICOTINE 21 MG/24 HR PATCH TRANSDERM PRN (21:34)
[2018-12-09] MEDS ORDERED: diphenhydrAMINE CAP 25 MG CAPSULE PO PRN (21:34)
[2018-12-09] MEDS ORDERED: POTASSIUM CHLORIDE 20 MEQ TABLET PO PRN (21:34)
[2018-12-09] MEDS ORDERED: LACTULOSE 20 GM/30 ML UDCUP PO ONE (21:35)
[2018-12-09] MEDS ORDERED: LEVOFLOXACIN INJ 500 MG in PREMIX 1 EACH IV SCH (22:00)
[2018-12-09] MEDS ORDERED: TEMAZEPAM 7.5 MG CAPSULE PO PRN (23:18)
[2018-12-09] MEDS: SODIUM CHLORIDE 0.9% 1,000 ML IV SCH (23:43)
[2018-12-09] MEDS: tiZANidine 4 MG TABLET PO SCH ×2 (23:43→23:56)
[2018-12-09] MEDS: DABIGATRAN 75 MG CAPSULE PO SCH ×2 (23:43→23:56)
[2018-12-09] MEDS: METOPROLOL TARTRATE 50 MG TABLET PO SCH ×2 (23:43→23:56)
[2018-12-09] MEDS: ROSUVASTATIN 20 MG TABLET PO SCH ×2 (23:44→23:56)
[2018-12-09] MEDS: DULoxetine 30 MG CAPSULE PO SCH ×2 (23:44→23:56)
[2018-12-10] MEDS ORDERED: EPINEPHrine 1 MG/10 ML SYRINGE IV ONE ×2 (00:45→01:05)
[2018-12-10] MEDS ORDERED: AMIODARONE 150 MG/3 ML VIAL IV ONE (00:48)
[2018-12-10] MEDS ORDERED: SODIUM BICARBONATE 50 MEQ/50 ML SYRINGE IV ONE ×2 (00:48→01:08)
[2018-12-10] MEDS ORDERED: PROPOFOL 1,000 MG/100 ML BOTTLE IV ONE (01:00)
[2018-12-10 01:09] LABS: ABG Base Excess 0.1 MMOL/L (-2.5-2.5); ABG HCO3 24.6 MMOL/L (20-26); ABG PH 7.554 (7.35-7.45); ABG TCO2 18.9 MMOL/L (23-27)
[2018-12-10] MEDS ORDERED: SODIUM CHLOR 0.9% KCL 20 MEQ 20 MEQ/1,000 ML BAG IV ONE (01:11)
[2018-12-10] MEDS ORDERED: POTASSIUM CHLORIDE 20 MEQ/15 ML UDCUP PER TUBE ONE (01:20)
[2018-12-10] MEDS ORDERED: POTASSIUM CHLORIDE 20 MEQ/15 ML UDCUP ONE (01:21)
[2018-12-10 01:26] LABS: Basophils # 0.1 10*3/uL (0.0-0.2); Basophils % 0.5 % (0.0-0.8); Eosinophils # 0.3 10*3/uL (0.0-0.87); Eosinophils % 1.6 % (0.00-10.9); Hematocrit 30.4 VOL% (42.0-52.0); Hemoglobin 9.6 GM/DL (14.0-18.0); Immature Granulocytes % 4.4 %; Immature Granulocytes Absolute 0.86 #; Lymphocytes # 4.2 10*3/uL (1.4-4.0); Lymphocytes % 21.5 % (21.2-54.2); Mean Corpuscular HGB Conc 31.6 GM/DL (32-36); Mean Corpuscular Volume 92.1 FL (87-102); Mean Platelet Volume 9.5 FL (9.6-12.0); Monocytes % 6.1 % (1.7-12.7); NRBC # 0.02 10*3/uL; Neutrophils % 65.9 % (38.7-73.9); Platelet Count 221 T/CUMM (130-400); Red Cell Distribution Width 15.7 % (9.3-17.3); White Blood Count 19.3 T/CUMM (4-12)
[2018-12-10] MEDS: PROPOFOL 1,000 MG/100 ML BOTTLE IV SCH ×5 (01:30→18:35)
[2018-12-10 01:53] LABS: Albumin 2.6 G/DL (3.4-5.0); Bilirubin,Total 0.6 MG/DL (0.2-1.0); Calcium 8.7 MG/DL (8.5-10.1); Osmolality,Calculated 272.5 MOS/KG (273-304); Total Protein 5.9 G/DL (6.4-8.3)
[2018-12-10 01:57] LABS: Band Neutrophils 3 % (0-10); Eosinophils 1 % (0-10); Lymphocytes 23 % (20-55); Metamyelocytes 1 %; Segmented Neutrophils 65 % (50-85); Total Cells Counted 100
[2018-12-10 01:58] LABS: Burr Cells 1+; Hypochromasia 1+; Platelet Estimate Normal; Reactive Lymphocytes Few
[2018-12-10 01:59] LABS: Ovalocytes 1+
[2018-12-10 02:00] LABS: Atypical Lymphocytes Few
[2018-12-10 02:08] LABS: ABG Base Excess 1.3 MMOL/L (-2.5-2.5); ABG HCO3 25.6 MMOL/L (20-26); ABG PCO2 40.6 MM HG (35-48); ABG PH 7.413 (7.35-7.45); ABG TCO2 23.6 MMOL/L (23-27); Allen Test Positive; Pt O2 Delivery Device Ventilator
[2018-12-10] MEDS ORDERED: LORazepam 2 MG/1 ML VIAL ONE (02:30)
[2018-12-10 04:22] LABS: ABG Base Excess 7.1 MMOL/L (-2.5-2.5); ABG HCO3 30.9 MMOL/L (20-26); ABG PCO2 38.6 MM HG (35-48); ABG PH 7.508 (7.35-7.45); ABG TCO2 27.6 MMOL/L (23-27); Allen Test Positive; Pt O2 Delivery Device Ventilator
[2018-12-10 04:24] LABS: Albumin 2.7 G/DL (3.4-5.0); Bilirubin,Total 0.7 MG/DL (0.2-1.0); Calcium 8.5 MG/DL (8.5-10.1); Osmolality,Calculated 272.4 MOS/KG (273-304); Total Protein 6.1 G/DL (6.4-8.3)
[2018-12-10] MEDS ORDERED: MAGNESIUM SULF RIDER 4 GM in PREMIX 1 EACH IV PRN (05:14)
[2018-12-10] MEDS: MAGNESIUM SULF RIDER 2 GM in PREMIX 1 EACH IV PRN (06:00)
[2018-12-10] MEDS: POTASSIUM CHLORIDE RIDER 10 MEQ in PREMIX 1 EACH IV PRN ×7 (06:00→20:08)
[2018-12-10] MEDS: LEVOTHYROXINE 75 MCG TABLET PO SCH (06:00)
[2018-12-10] MEDS ORDERED: RAMIPRIL 5 MG CAPSULE PO SCH (09:00)
[2018-12-10] MEDS ORDERED: TORSEMIDE 20 MG TABLET PO SCH (09:00)
[2018-12-10] MEDS ORDERED: FUROSEMIDE 20 MG TABLET PO SCH (09:00)
[2018-12-10] MEDS ORDERED: metOLazone 5 MG TABLET PO SCH (09:00)
[2018-12-10] MEDS ORDERED: FUROSEMIDE 20 MG/2 ML VIAL IV SCH (09:00)
[2018-12-10] MEDS: cefTRIAXone 1,000 MG in SYRINGE 1 EACH IV SCH (09:52)
[2018-12-10] MEDS: FOLIC ACID 1 MG TABLET PO SCH (09:53)
[2018-12-10] MEDS: METOPROLOL TARTRATE 50 MG TABLET PO SCH ×2 (09:53→21:14)
[2018-12-10] MEDS: DULoxetine 30 MG CAPSULE PO SCH ×2 (09:53→21:14)
[2018-12-10] MEDS: amLODIPine 5 MG TABLET PO SCH (09:53)
[2018-12-10] MEDS: GABAPENTIN 600 MG TABLET PO SCH ×3 (09:53→21:14)
[2018-12-10] MEDS: DABIGATRAN 75 MG CAPSULE PO SCH (09:53)
[2018-12-10] MEDS: predniSONE 5 MG TABLET PO SCH (09:53)
[2018-12-10] MEDS: ASPIRIN EC 81 MG TABLET PO SCH (09:53)
[2018-12-10] MEDS: POTASSIUM CHLORIDE 20 MEQ TABLET PO SCH (09:54)
[2018-12-10] MEDS: PANTOPRAZOLE 40 MG TABLET PO SCH (09:54)
[2018-12-10] MEDS: SODIUM CHLORIDE 0.9% 1,000 ML IV SCH ×2 (15:30→22:45)
[2018-12-10] MEDS: TAMSULOSIN 0.4 MG CAPSULE PO SCH (21:14)
[2018-12-10] MEDS: ROSUVASTATIN 20 MG TABLET PO SCH (21:14)
[2018-12-10] MEDS: DABIGATRAN 150 MG CAPSULE PO SCH (21:14)
[2018-12-10] MEDS: tiZANidine 4 MG TABLET PO SCH (21:14)
[2018-12-10] MEDS ORDERED: SODIUM CHLORIDE 0.9% 500 ML IV ONE (22:15)
[2018-12-11] MEDS: PROPOFOL 1,000 MG/100 ML BOTTLE IV SCH ×5 (00:13→21:49)
[2018-12-11 03:04] LABS: ABG Base Excess 5.9 MMOL/L (-2.5-2.5); ABG HCO3 29.8 MMOL/L (20-26); ABG PCO2 34.8 MM HG (35-48); ABG PH 7.526 (7.35-7.45); ABG TCO2 25.8 MMOL/L (23-27); Allen Test Positive; Pt O2 Delivery Device Ventilator
[2018-12-11 04:17] LABS: Basophils # 0.1 10*3/uL (0.0-0.2); Basophils % 0.8 % (0.0-0.8); Eosinophils # 0.2 10*3/uL (0.0-0.87); Eosinophils % 1.8 % (0.00-10.9); Hematocrit 31.8 VOL% (42.0-52.0); Hemoglobin 10.3 GM/DL (14.0-18.0); Immature Granulocytes % 0.4 %; Immature Granulocytes Absolute 0.04 #; Lymphocytes # 1.2 10*3/uL (1.4-4.0); Lymphocytes % 11.8 % (21.2-54.2); Mean Corpuscular HGB Conc 32.4 GM/DL (32-36); Mean Corpuscular Volume 89.6 FL (87-102); Mean Platelet Volume 10.1 FL (9.6-12.0); Monocytes % 13.2 % (1.7-12.7); Platelet Count 217 T/CUMM (130-400); Red Blood Count 3.55 MC/CUMM (3.8-5.5); Red Cell Distribution Width 15.9 % (9.3-17.3)
[2018-12-11 04:35] LABS: Calcium 8.3 MG/DL (8.5-10.1); Osmolality,Calculated 267.2 MOS/KG (273-304)
[2018-12-11] MEDS: POTASSIUM CHLORIDE RIDER 10 MEQ in PREMIX 1 EACH IV PRN (04:52)
[2018-12-11] MEDS: LEVOTHYROXINE 75 MCG TABLET PO SCH (06:53)
[2018-12-11] MEDS: DULoxetine 30 MG CAPSULE PO SCH ×2 (08:08→20:36)
[2018-12-11] MEDS: cefTRIAXone 1,000 MG in SYRINGE 1 EACH IV SCH (08:08)
[2018-12-11] MEDS: METOPROLOL TARTRATE 50 MG TABLET PO SCH ×2 (08:08→20:36)
[2018-12-11] MEDS: predniSONE 5 MG TABLET PO SCH (08:08)
[2018-12-11] MEDS: amLODIPine 5 MG TABLET PO SCH (08:08)
[2018-12-11] MEDS: DABIGATRAN 150 MG CAPSULE PO SCH ×2 (08:08→20:36)
[2018-12-11] MEDS: GABAPENTIN 600 MG TABLET PO SCH ×3 (08:08→20:36)
[2018-12-11] MEDS: FOLIC ACID 1 MG TABLET PO SCH (08:08)
[2018-12-11] MEDS: ASPIRIN EC 81 MG TABLET PO SCH (08:35)
[2018-12-11] MEDS: PANTOPRAZOLE 40 MG TABLET PO SCH (08:36)
[2018-12-11] MEDS: POTASSIUM CHLORIDE 20 MEQ TABLET PO SCH (08:36)
[2018-12-11] MEDS ORDERED: GLUCAGON 1 MG VIAL IM PRN (08:45)
[2018-12-11] MEDS ORDERED: DEXTROSE 50% IV PRN (08:45)
[2018-12-11] MEDS: ASPIRIN 325 MG TABLET PER TUBE SCH (09:41)
[2018-12-11] MEDS: POTASSIUM CHLORIDE 20 MEQ/15 ML UDCUP PER TUBE SCH (09:41)
[2018-12-11] MEDS: POTASSIUM CHLORIDE 20 MEQ/15 ML UDCUP PER TUBE PRN ×3 (09:41→14:23)
[2018-12-11] MEDS: ENALAPRIL 10 MG TABLET PO SCH (10:26)
[2018-12-11] MEDS: SODIUM CHLORIDE 0.9% 1,000 ML IV SCH ×2 (11:16→23:05)
[2018-12-11] MEDS: TAMSULOSIN 0.4 MG CAPSULE PO SCH (20:36)
[2018-12-11] MEDS: ROSUVASTATIN 20 MG TABLET PO SCH (20:36)
[2018-12-11] MEDS: tiZANidine 4 MG TABLET PO SCH (20:37)
[2018-12-12 03:36] LABS: ABG Base Excess 5.4 MMOL/L (-2.5-2.5); ABG HCO3 28.8 MMOL/L (20-26); ABG PCO2 37.6 MM HG (35-48); ABG PH 7.502 (7.35-7.45); ABG PO2 171.8 MM HG (80-95); ABG TCO2 29.9 MMOL/L (23-27); Allen Test Positive; Pt O2 Delivery Device Ventilator
[2018-12-12 04:43] LABS: Basophils # 0.1 10*3/uL (0.0-0.2); Basophils % 0.6 % (0.0-0.8); Eosinophils # 0.1 10*3/uL (0.0-0.87); Hematocrit 32.2 VOL% (42.0-52.0); Hemoglobin 10.1 GM/DL (14.0-18.0); Immature Granulocytes % 0.4 %; Immature Granulocytes Absolute 0.05 #; Lymphocytes # 1.6 10*3/uL (1.4-4.0); Lymphocytes % 14.5 % (21.2-54.2); Mean Corpuscular HGB Conc 31.4 GM/DL (32-36); Mean Corpuscular Volume 90.7 FL (87-102); Mean Platelet Volume 10.1 FL (9.6-12.0); Monocytes % 11.3 % (1.7-12.7); Neutrophils % 72.2 % (38.7-73.9); Platelet Count 226 T/CUMM (130-400); Red Blood Count 3.55 MC/CUMM (3.8-5.5); Red Cell Distribution Width 15.9 % (9.3-17.3); White Blood Count 11.3 T/CUMM (4-12)
[2018-12-12 05:08] LABS: Calcium 7.9 MG/DL (8.5-10.1); Osmolality,Calculated 271.1 MOS/KG (273-304)
[2018-12-12] MEDS: PROPOFOL 1,000 MG/100 ML BOTTLE IV SCH ×2 (05:20→06:02)
[2018-12-12] MEDS: POTASSIUM CHLORIDE 20 MEQ/15 ML UDCUP PER TUBE PRN (05:42)
[2018-12-12] MEDS: LEVOTHYROXINE 75 MCG TABLET PO SCH (05:43)
[2018-12-12] MEDS: MAGNESIUM SULF RIDER 2 GM in PREMIX 1 EACH IV PRN (05:43)
[2018-12-12] MEDS: SODIUM CHLORIDE 0.9% 1,000 ML IV SCH ×2 (06:03→13:51)
[2018-12-12] MEDS: METOPROLOL TARTRATE 50 MG TABLET PO SCH ×2 (08:14→20:19)
[2018-12-12] MEDS: FOLIC ACID 1 MG TABLET PO SCH (08:14)
[2018-12-12] MEDS: POTASSIUM CHLORIDE 20 MEQ/15 ML UDCUP PER TUBE SCH (08:14)
[2018-12-12] MEDS: ASPIRIN 325 MG TABLET PER TUBE SCH (08:14)
[2018-12-12] MEDS: LANSOPRAZOLE ODT 30 MG TABLET PER TUBE SCH (08:15)
[2018-12-12] MEDS: DULoxetine 30 MG CAPSULE PO SCH (08:15)
[2018-12-12] MEDS: predniSONE 5 MG TABLET PO SCH (08:15)
[2018-12-12] MEDS: GABAPENTIN 600 MG TABLET PO SCH ×3 (08:15→20:20)
[2018-12-12] MEDS: amLODIPine 5 MG TABLET PO SCH (08:15)
[2018-12-12] MEDS: DABIGATRAN 150 MG CAPSULE PO SCH ×2 (08:15→20:20)
[2018-12-12] MEDS: ENALAPRIL 10 MG TABLET PO SCH (08:16)
[2018-12-12] MEDS: cefTRIAXone 1,000 MG in SYRINGE 1 EACH IV SCH (08:16)
[2018-12-12 10:25] LABS: Allen Test Positive; Pt O2 Delivery Device Ventilator
[2018-12-12 10:26] LABS: ABG Base Excess 4.8 MMOL/L (-2.5-2.5); ABG HCO3 28.8 MMOL/L (20-26); ABG PCO2 41.3 MM HG (35-48); ABG PH 7.456 (7.35-7.45); ABG TCO2 26.3 MMOL/L (23-27)
[2018-12-12] MEDS ORDERED: METHYLNALTREXONE 12 MG/0.6 ML VIAL SUBCUT ONE (11:00)
[2018-12-12] MEDS: ACETAMINOPHEN 325 MG TABLET PO PRN (17:50)
[2018-12-12] MEDS: ROSUVASTATIN 20 MG TABLET PO SCH (20:18)
[2018-12-12] MEDS: LIDOCAINE 5% PATCH TRANSDERM SCH (20:19)
[2018-12-12] MEDS: TAMSULOSIN 0.4 MG CAPSULE PO SCH (20:19)
[2018-12-12] MEDS: DICLOFENAC 1% GEL 100 GM TUBE TOP SCH (20:20)
[2018-12-12] MEDS: MIRTAZAPINE 15 MG TABLET PO SCH (20:20)
[2018-12-12] MEDS: tiZANidine 4 MG TABLET PO SCH (21:08)
[2018-12-13] MEDS: SODIUM CHLORIDE 0.9% 1,000 ML IV SCH ×2 (03:37→14:19)
[2018-12-13 04:11] LABS: ABG Base Excess 4.7 MMOL/L (-2.5-2.5); ABG HCO3 28.1 MMOL/L (20-26); ABG PCO2 36.9 MM HG (35-48); ABG PH 7.499 (7.35-7.45); ABG PO2 102.3 MM HG (80-95); ABG TCO2 29.2 MMOL/L (23-27); Allen Test Positive
[2018-12-13 04:26] LABS: Basophils # 0.1 10*3/uL (0.0-0.2); Basophils % 1.1 % (0.0-0.8); Eosinophils # 0.2 10*3/uL (0.0-0.87); Eosinophils % 1.8 % (0.00-10.9); Hemoglobin 10.3 GM/DL (14.0-18.0); Immature Granulocytes % 0.3 %; Immature Granulocytes Absolute 0.03 #; Lymphocytes # 1.7 10*3/uL (1.4-4.0); Mean Corpuscular HGB Conc 32.2 GM/DL (32-36); Mean Corpuscular Volume 90.9 FL (87-102); Mean Platelet Volume 10.1 FL (9.6-12.0); Monocytes % 13.9 % (1.7-12.7); Neutrophils % 63.9 % (38.7-73.9); Platelet Count 211 T/CUMM (130-400); Red Blood Count 3.52 MC/CUMM (3.8-5.5); Red Cell Distribution Width 15.6 % (9.3-17.3); White Blood Count 8.8 T/CUMM (4-12)
[2018-12-13 04:51] LABS: Calcium 8.2 MG/DL (8.5-10.1); Osmolality,Calculated 273.1 MOS/KG (273-304)
[2018-12-13] MEDS: POTASSIUM CHLORIDE 20 MEQ/15 ML UDCUP PER TUBE PRN (05:13)
[2018-12-13] MEDS: LEVOTHYROXINE 75 MCG TABLET PO SCH (06:39)
[2018-12-13] MEDS: PROPOFOL 1,000 MG/100 ML BOTTLE IV SCH (08:32)
[2018-12-13] MEDS: FOLIC ACID 1 MG TABLET PO SCH (08:52)
[2018-12-13] MEDS: ASPIRIN 325 MG TABLET PER TUBE SCH (08:52)
[2018-12-13] MEDS: GABAPENTIN 600 MG TABLET PO SCH ×3 (08:52→20:39)
[2018-12-13] MEDS: DABIGATRAN 150 MG CAPSULE PO SCH ×2 (08:55→20:38)
[2018-12-13] MEDS: METOPROLOL TARTRATE 50 MG TABLET PO SCH ×2 (08:55→20:38)
[2018-12-13] MEDS: predniSONE 5 MG TABLET PO SCH (08:55)
[2018-12-13] MEDS: LANSOPRAZOLE ODT 30 MG TABLET PER TUBE SCH (08:55)
[2018-12-13] MEDS: cefTRIAXone 1,000 MG in SYRINGE 1 EACH IV SCH (08:58)
[2018-12-13] MEDS: DICLOFENAC 1% GEL 100 GM TUBE TOP SCH ×3 (09:02→21:30)
[2018-12-13] MEDS: LIDOCAINE 5% PATCH TRANSDERM SCH (09:04)
[2018-12-13] MEDS: POTASSIUM CHLORIDE 20 MEQ/15 ML UDCUP PER TUBE SCH (09:13)
[2018-12-13] MEDS ORDERED: POTASSIUM CHLORIDE 20 MEQ TABLET PO SCH (09:30)
[2018-12-13] MEDS: AMPICILLIN 500 MG CAPSULE PO SCH ×4 (09:49→20:39)
[2018-12-13] MEDS: POTASSIUM CHLORIDE 20 MEQ TABLET PO PRN (13:09)
[2018-12-13] MEDS: ROSUVASTATIN 20 MG TABLET PO SCH (20:39)
[2018-12-13] MEDS: MIRTAZAPINE 15 MG TABLET PO SCH (20:39)
[2018-12-13] MEDS: tiZANidine 4 MG TABLET PO SCH (20:39)
[2018-12-13] MEDS: TAMSULOSIN 0.4 MG CAPSULE PO SCH (20:39)
[2018-12-13] MEDS: oxyCODONE/ACETAMINOPHEN 5-325 MG TABLET PO PRN (21:32)
[2018-12-14] MEDS: PROPOFOL 1,000 MG/100 ML BOTTLE IV SCH (01:41)
[2018-12-14 04:47] LABS: Basophils # 0.1 10*3/uL (0.0-0.2); Basophils % 0.9 % (0.0-0.8); Calcium 7.6 MG/DL (8.5-10.1); Eosinophils # 0.2 10*3/uL (0.0-0.87); Eosinophils % 2.4 % (0.00-10.9); Hematocrit 27.7 VOL% (42.0-52.0); Hemoglobin 8.8 GM/DL (14.0-18.0); Immature Granulocytes % 0.7 %; Immature Granulocytes Absolute 0.05 #; Lymphocytes # 1.4 10*3/uL (1.4-4.0); Lymphocytes % 20.5 % (21.2-54.2); Mean Corpuscular HGB Conc 31.8 GM/DL (32-36); Mean Corpuscular Volume 90.2 FL (87-102); Mean Platelet Volume 10.3 FL (9.6-12.0); Monocytes % 10.2 % (1.7-12.7); Neutrophils % 65.3 % (38.7-73.9); Osmolality,Calculated 274.2 MOS/KG (273-304); Platelet Count 203 T/CUMM (130-400); Red Blood Count 3.07 MC/CUMM (3.8-5.5); Red Cell Distribution Width 15.4 % (9.3-17.3)
[2018-12-14] MEDS: SODIUM CHLORIDE 0.9% 1,000 ML IV SCH (06:22)
[2018-12-14] MEDS: oxyCODONE/ACETAMINOPHEN 5-325 MG TABLET PO PRN (07:12)
[2018-12-14] MEDS: LEVOTHYROXINE 75 MCG TABLET PO SCH (07:12)
[2018-12-14] MEDS: ASPIRIN 325 MG TABLET PER TUBE SCH (08:35)
[2018-12-14] MEDS: predniSONE 5 MG TABLET PO SCH (08:35)
[2018-12-14] MEDS: LIDOCAINE 5% PATCH TRANSDERM SCH (08:35)
[2018-12-14] MEDS: POTASSIUM CHLORIDE 20 MEQ TABLET PO SCH (08:36)
[2018-12-14] MEDS: METOPROLOL TARTRATE 50 MG TABLET PO SCH ×2 (08:36→22:00)
[2018-12-14] MEDS: AMPICILLIN 500 MG CAPSULE PO SCH ×4 (08:36→22:00)
[2018-12-14] MEDS: GABAPENTIN 600 MG TABLET PO SCH ×3 (08:36→21:59)
[2018-12-14] MEDS: FOLIC ACID 1 MG TABLET PO SCH (08:36)
[2018-12-14] MEDS: LANSOPRAZOLE ODT 30 MG TABLET PER TUBE SCH (08:37)
[2018-12-14] MEDS: DICLOFENAC 1% GEL 100 GM TUBE TOP SCH ×3 (08:39→22:02)
[2018-12-14] MEDS ORDERED: MAGNESIUM SULF RIDER 2 GM in PREMIX 1 EACH IV ONE (10:10)
[2018-12-14] MEDS ORDERED: POTASSIUM CHLORIDE 10 MEQ TABLET PO ONE (10:10)
[2018-12-14] MEDS: MIRTAZAPINE 15 MG TABLET PO SCH (22:00)
[2018-12-14] MEDS: tiZANidine 4 MG TABLET PO SCH (22:00)
[2018-12-14] MEDS: ROSUVASTATIN 20 MG TABLET PO SCH (22:00)
[2018-12-14] MEDS: TAMSULOSIN 0.4 MG CAPSULE PO SCH (22:00)
[2018-12-15 05:13] LABS: Basophils # 0.1 10*3/uL (0.0-0.2); Basophils % 1.3 % (0.0-0.8); Eosinophils # 0.3 10*3/uL (0.0-0.87); Hematocrit 28.7 VOL% (42.0-52.0); Hemoglobin 9.1 GM/DL (14.0-18.0); Immature Granulocytes % 1.3 %; Lymphocytes # 1.7 10*3/uL (1.4-4.0); Mean Corpuscular HGB Conc 31.7 GM/DL (32-36); Mean Corpuscular Volume 90.5 FL (87-102); Mean Platelet Volume 10.3 FL (9.6-12.0); Monocytes % 10.3 % (1.7-12.7); Neutrophils % 61.1 % (38.7-73.9); Platelet Count 210 T/CUMM (130-400); Red Blood Count 3.17 MC/CUMM (3.8-5.5); Red Cell Distribution Width 15.4 % (9.3-17.3); White Blood Count 7.5 T/CUMM (4-12)
[2018-12-15 05:32] LABS: Osmolality,Calculated 272.1 MOS/KG (273-304)
[2018-12-15] MEDS ORDERED: diphenhydrAMINE CAP 25 MG CAPSULE PO ONE (06:00)
[2018-12-15] MEDS ORDERED: DIAZEPAM 5 MG TABLET PO ONE (06:00)
[2018-12-15] MEDS: POTASSIUM CHLORIDE 20 MEQ TABLET PO PRN (06:36)
[2018-12-15] MEDS: LEVOTHYROXINE 75 MCG TABLET PO SCH (06:40)
[2018-12-15] MEDS: POTASSIUM CHLORIDE RIDER 10 MEQ in PREMIX 1 EACH IV SCH ×2 (08:11→10:13)
[2018-12-15] MEDS ORDERED: HEPARIN/NACL 0.9% 2 UNITS/ML 1,000 ML IV ONE (08:50)
[2018-12-15] MEDS ORDERED: LIDOCAINE 1% 20 ML VIAL ONE (08:51)
[2018-12-15] MEDS ORDERED: fentaNYL 100 MCG/2 ML VIAL ONE (09:10)
[2018-12-15] MEDS ORDERED: MIDAZOLAM 2 MG/2 ML VIAL ONE (09:10)
[2018-12-15] MEDS ORDERED: SODIUM CHLORIDE 0.9% 1,000 ML IV SCH (10:00)
[2018-12-15] MEDS ORDERED: POTASSIUM CHLORIDE 20 MEQ TABLET PO ONE (10:23)
[2018-12-15] MEDS: AMPICILLIN 500 MG CAPSULE PO SCH ×4 (10:31→21:08)
[2018-12-15] MEDS: GABAPENTIN 600 MG TABLET PO SCH ×3 (10:31→21:08)
[2018-12-15] MEDS: ASPIRIN 325 MG TABLET PER TUBE SCH (10:32)
[2018-12-15] MEDS: FOLIC ACID 1 MG TABLET PO SCH (10:32)
[2018-12-15] MEDS: predniSONE 5 MG TABLET PO SCH (10:32)
[2018-12-15] MEDS: POTASSIUM CHLORIDE 20 MEQ TABLET PO SCH ×2 (10:32→21:08)
[2018-12-15] MEDS: METOPROLOL TARTRATE 50 MG TABLET PO SCH ×2 (10:34→21:08)
[2018-12-15] MEDS: LANSOPRAZOLE ODT 30 MG TABLET PER TUBE SCH (10:34)
[2018-12-15] MEDS: DICLOFENAC 1% GEL 100 GM TUBE TOP SCH ×3 (10:34→21:09)
[2018-12-15] MEDS: LIDOCAINE 5% PATCH TRANSDERM SCH (10:36)
[2018-12-15] MEDS: ROSUVASTATIN 20 MG TABLET PO SCH (21:08)
[2018-12-15] MEDS: TAMSULOSIN 0.4 MG CAPSULE PO SCH (21:08)
[2018-12-15] MEDS: tiZANidine 4 MG TABLET PO SCH (21:08)
[2018-12-15] MEDS: MIRTAZAPINE 15 MG TABLET PO SCH (21:08)
[2018-12-16] MEDS: MORPHINE 4 MG/1 ML VIAL IV PRN (00:39)
[2018-12-16 04:27] LABS: Basophils # 0.1 10*3/uL (0.0-0.2); Eosinophils # 0.2 10*3/uL (0.0-0.87); Eosinophils % 3.1 % (0.00-10.9); Hematocrit 33.6 VOL% (42.0-52.0); Hemoglobin 10.2 GM/DL (14.0-18.0); Immature Granulocytes Absolute 0.08 #; Lymphocytes % 25.8 % (21.2-54.2); Mean Corpuscular HGB Conc 30.4 GM/DL (32-36); Mean Corpuscular Volume 92.8 FL (87-102); Mean Platelet Volume 10.2 FL (9.6-12.0); Monocytes % 11.1 % (1.7-12.7); Platelet Count 233 T/CUMM (130-400); Red Blood Count 3.62 MC/CUMM (3.8-5.5); Red Cell Distribution Width 15.6 % (9.3-17.3); White Blood Count 7.8 T/CUMM (4-12)
[2018-12-16 04:57] LABS: Calcium 8.3 MG/DL (8.5-10.1); Osmolality,Calculated 269.1 MOS/KG (273-304)
[2018-12-16] MEDS: LEVOTHYROXINE 75 MCG TABLET PO SCH (05:33)
[2018-12-16] MEDS: AMPICILLIN 500 MG CAPSULE PO SCH ×4 (09:03→21:23)
[2018-12-16] MEDS: GABAPENTIN 600 MG TABLET PO SCH ×3 (09:03→21:23)
[2018-12-16] MEDS: ASPIRIN EC 81 MG TABLET PO SCH (09:03)
[2018-12-16] MEDS: FOLIC ACID 1 MG TABLET PO SCH (09:03)
[2018-12-16] MEDS: predniSONE 5 MG TABLET PO SCH (09:03)
[2018-12-16] MEDS: METOPROLOL TARTRATE 50 MG TABLET PO SCH ×2 (09:03→21:22)
[2018-12-16] MEDS: LANSOPRAZOLE ODT 30 MG TABLET PER TUBE SCH (09:04)
[2018-12-16] MEDS: LIDOCAINE 5% PATCH TRANSDERM SCH (09:05)
[2018-12-16] MEDS: DABIGATRAN 150 MG CAPSULE PO SCH ×2 (09:06→21:22)
[2018-12-16] MEDS: ENALAPRIL 10 MG TABLET PO SCH (09:25)
[2018-12-16] MEDS ORDERED: DEXTROMETHORPHAN ER 6 MG/ML 90 ML/BOTTLE PO PRN (09:25)
[2018-12-16] MEDS: POTASSIUM CHLORIDE 20 MEQ TABLET PO SCH (09:25)
[2018-12-16] MEDS: DICLOFENAC 1% GEL 100 GM TUBE TOP SCH ×3 (09:29→21:25)
[2018-12-16 13:20] LABS: Calcium 7.8 MG/DL (8.5-10.1); Osmolality,Calculated 263.7 MOS/KG (273-304)
[2018-12-16] MEDS: MAGNESIUM SULF RIDER 2 GM in PREMIX 1 EACH IV PRN (13:54)
[2018-12-16] MEDS: ROSUVASTATIN 20 MG TABLET PO SCH (21:22)
[2018-12-16] MEDS: tiZANidine 4 MG TABLET PO SCH (21:22)
[2018-12-16] MEDS: MIRTAZAPINE 15 MG TABLET PO SCH (21:23)
[2018-12-16] MEDS: TAMSULOSIN 0.4 MG CAPSULE PO SCH (21:23)
[2018-12-17 05:06] LABS: Basophils # 0.1 10*3/uL (0.0-0.2); Basophils % 1.2 % (0.0-0.8); Eosinophils # 0.2 10*3/uL (0.0-0.87); Eosinophils % 3.1 % (0.00-10.9); Hemoglobin 9.3 GM/DL (14.0-18.0); Immature Granulocytes % 0.5 %; Immature Granulocytes Absolute 0.04 #; Lymphocytes % 27.3 % (21.2-54.2); Mean Corpuscular Volume 91.7 FL (87-102); Mean Platelet Volume 10.2 FL (9.6-12.0); Monocytes % 12.2 % (1.7-12.7); Neutrophils % 55.7 % (38.7-73.9); Platelet Count 226 T/CUMM (130-400); Red Blood Count 3.27 MC/CUMM (3.8-5.5); Red Cell Distribution Width 15.7 % (9.3-17.3); White Blood Count 7.4 T/CUMM (4-12)
[2018-12-17 05:42] LABS: Calcium 8.2 MG/DL (8.5-10.1)
[2018-12-17] MEDS: LEVOTHYROXINE 75 MCG TABLET PO SCH (05:55)
[2018-12-17] MEDS ORDERED: POTASSIUM CHLORIDE 20 MEQ TABLET PO SCH (09:00)
[2018-12-17] MEDS: LIDOCAINE 5% PATCH TRANSDERM SCH (09:31)
[2018-12-17] MEDS: FOLIC ACID 1 MG TABLET PO SCH (09:33)
[2018-12-17] MEDS: GABAPENTIN 600 MG TABLET PO SCH ×3 (09:33→20:47)
[2018-12-17] MEDS: ASPIRIN EC 81 MG TABLET PO SCH (09:33)
[2018-12-17] MEDS: POTASSIUM CHLORIDE 20 MEQ TABLET PO SCH (09:33)
[2018-12-17] MEDS: DABIGATRAN 150 MG CAPSULE PO SCH ×2 (09:33→20:48)
[2018-12-17] MEDS: LANSOPRAZOLE ODT 30 MG TABLET PER TUBE SCH (09:33)
[2018-12-17] MEDS: ENALAPRIL 10 MG TABLET PO SCH (09:33)
[2018-12-17] MEDS: DICLOFENAC 1% GEL 100 GM TUBE TOP SCH ×3 (09:34→20:48)
[2018-12-17] MEDS: METOPROLOL TARTRATE 50 MG TABLET PO SCH ×2 (09:34→20:47)
[2018-12-17] MEDS: AMPICILLIN 500 MG CAPSULE PO SCH ×4 (09:34→20:46)
[2018-12-17] MEDS: predniSONE 5 MG TABLET PO SCH (09:34)
[2018-12-17] MEDS: TAMSULOSIN 0.4 MG CAPSULE PO SCH (20:47)
[2018-12-17] MEDS: ROSUVASTATIN 20 MG TABLET PO SCH (20:47)
[2018-12-17] MEDS: MIRTAZAPINE 15 MG TABLET PO SCH (20:48)
[2018-12-17] MEDS: tiZANidine 4 MG TABLET PO SCH (20:48)
[2018-12-18 04:59] LABS: Basophils # 0.1 10*3/uL (0.0-0.2); Basophils % 1.3 % (0.0-0.8); Eosinophils # 0.2 10*3/uL (0.0-0.87); Eosinophils % 3.3 % (0.00-10.9); Hematocrit 31.5 VOL% (42.0-52.0); Hemoglobin 9.9 GM/DL (14.0-18.0); Immature Granulocytes % 0.4 %; Immature Granulocytes Absolute 0.03 #; Lymphocytes # 1.9 10*3/uL (1.4-4.0); Lymphocytes % 27.2 % (21.2-54.2); Mean Corpuscular HGB Conc 31.4 GM/DL (32-36); Mean Corpuscular Volume 91.3 FL (87-102); Mean Platelet Volume 10.5 FL (9.6-12.0); Monocytes % 11.5 % (1.7-12.7); Neutrophils % 56.3 % (38.7-73.9); Platelet Count 249 T/CUMM (130-400); Red Blood Count 3.45 MC/CUMM (3.8-5.5); Red Cell Distribution Width 15.9 % (9.3-17.3); White Blood Count 7.1 T/CUMM (4-12)
[2018-12-18 05:22] LABS: Calcium 8.3 MG/DL (8.5-10.1); Osmolality,Calculated 277.4 MOS/KG (273-304)
[2018-12-18] MEDS: LEVOTHYROXINE 75 MCG TABLET PO SCH (05:52)
[2018-12-18] MEDS: ACETAMINOPHEN 325 MG TABLET PO PRN ×3 (05:52→15:51)
[2018-12-18] MEDS: METOPROLOL TARTRATE 50 MG TABLET PO SCH ×2 (10:01→20:51)
[2018-12-18] MEDS: FOLIC ACID 1 MG TABLET PO SCH (10:01)
[2018-12-18] MEDS: DICLOFENAC 1% GEL 100 GM TUBE TOP SCH ×3 (10:01→20:52)
[2018-12-18] MEDS: predniSONE 5 MG TABLET PO SCH (10:01)
[2018-12-18] MEDS: ASPIRIN EC 81 MG TABLET PO SCH (10:01)
[2018-12-18] MEDS: GABAPENTIN 600 MG TABLET PO SCH ×3 (10:01→20:52)
[2018-12-18] MEDS: DABIGATRAN 150 MG CAPSULE PO SCH ×2 (10:02→20:51)
[2018-12-18] MEDS: MAGNESIUM SULF RIDER 2 GM in PREMIX 1 EACH IV PRN (10:02)
[2018-12-18] MEDS: LANSOPRAZOLE ODT 30 MG TABLET PER TUBE SCH (10:02)
[2018-12-18] MEDS: POTASSIUM CHLORIDE 20 MEQ TABLET PO SCH (10:03)
[2018-12-18] MEDS: LIDOCAINE 5% PATCH TRANSDERM SCH (10:03)
[2018-12-18] MEDS: ENALAPRIL 10 MG TABLET PO SCH (10:18)
[2018-12-18] MEDS: INSULIN LISPRO 100 UNIT/ML SUBCUT SCH ×2 (16:45→20:52)
[2018-12-18] MEDS: TAMSULOSIN 0.4 MG CAPSULE PO SCH (20:51)
[2018-12-18] MEDS: MIRTAZAPINE 15 MG TABLET PO SCH (20:52)
[2018-12-18] MEDS: tiZANidine 4 MG TABLET PO SCH (20:52)
[2018-12-18] MEDS: ROSUVASTATIN 20 MG TABLET PO SCH (20:52)
[2018-12-19 05:47] LABS: Basophils # 0.1 10*3/uL (0.0-0.2); Basophils % 1.3 % (0.0-0.8); Eosinophils # 0.2 10*3/uL (0.0-0.87); Eosinophils % 2.6 % (0.00-10.9); Hematocrit 27.3 VOL% (42.0-52.0); Hemoglobin 8.6 GM/DL (14.0-18.0); Immature Granulocytes % 0.6 %; Immature Granulocytes Absolute 0.04 #; Lymphocytes # 1.9 10*3/uL (1.4-4.0); Lymphocytes % 26.4 % (21.2-54.2); Mean Corpuscular HGB Conc 31.5 GM/DL (32-36); Mean Corpuscular Volume 90.7 FL (87-102); Mean Platelet Volume 10.3 FL (9.6-12.0); Monocytes % 10.3 % (1.7-12.7); Neutrophils % 58.8 % (38.7-73.9); Platelet Count 233 T/CUMM (130-400); Red Blood Count 3.01 MC/CUMM (3.8-5.5); White Blood Count 7.2 T/CUMM (4-12)
[2018-12-19 06:00] LABS: Calcium 8.1 MG/DL (8.5-10.1); Osmolality,Calculated 271.8 MOS/KG (273-304)
[2018-12-19] MEDS: LEVOTHYROXINE 75 MCG TABLET PO SCH (06:19)
[2018-12-19 07:43] LABS: Eosinophils 3 % (0-10); Lymphocytes 20 % (20-55); Platelet Estimate Adequate; Segmented Neutrophils 73 % (50-85); Total Cells Counted 100
[2018-12-19 07:44] LABS: Hypochromasia 1+; Ovalocytes Slight
[2018-12-19] MEDS: INSULIN LISPRO 100 UNIT/ML SUBCUT SCH ×4 (08:30→21:15)
[2018-12-19] MEDS ORDERED: ASPIRIN 325 MG TABLET ONE (09:30)
[2018-12-19] MEDS ORDERED: MORPHINE 4 MG/1 ML VIAL ONE (09:31)
[2018-12-19] MEDS ORDERED: NITROGLYCERIN SL 0.4 MG TABLET SL ONE (09:35)
[2018-12-19] MEDS: NITROGLYCERIN SL 0.4 MG TABLET SL PRN (09:36)
[2018-12-19] MEDS ORDERED: MAGNESIUM SULF RIDER 2 GM in PREMIX 1 EACH IV ONE (09:39)
[2018-12-19] MEDS ORDERED: MORPHINE 4 MG/1 ML VIAL IV PRN (09:40)
[2018-12-19] MEDS ORDERED: ACETAMINOPHEN 325 MG TABLET PO PRN (09:40)
[2018-12-19] MEDS: ACETAMINOPHEN 325 MG TABLET PO PRN (09:43)
[2018-12-19] MEDS: MORPHINE 4 MG/1 ML VIAL IV PRN (09:44)
[2018-12-19 10:00] LABS: Basophils # 0.1 10*3/uL (0.0-0.2); Basophils % 0.9 % (0.0-0.8); Eosinophils # 0.3 10*3/uL (0.0-0.87); Eosinophils % 2.9 % (0.00-10.9); Hematocrit 29.8 VOL% (42.0-52.0); Hemoglobin 9.3 GM/DL (14.0-18.0); Immature Granulocytes % 0.7 %; Immature Granulocytes Absolute 0.06 #; Lymphocytes # 1.9 10*3/uL (1.4-4.0); Lymphocytes % 21.5 % (21.2-54.2); Mean Corpuscular HGB Conc 31.2 GM/DL (32-36); Mean Corpuscular Volume 91.1 FL (87-102); Mean Platelet Volume 10.1 FL (9.6-12.0); Monocytes % 9.9 % (1.7-12.7); Neutrophils % 64.1 % (38.7-73.9); Platelet Count 231 T/CUMM (130-400); Red Blood Count 3.27 MC/CUMM (3.8-5.5); Red Cell Distribution Width 15.9 % (9.3-17.3); White Blood Count 8.8 T/CUMM (4-12)
[2018-12-19] MEDS ORDERED: ALUM/MAG/SIMETH/LIDO VISC 1:1 30 ML BOTTLE PO ONE (10:00)
[2018-12-19] MEDS: DABIGATRAN 150 MG CAPSULE PO SCH ×2 (10:24→21:14)
[2018-12-19] MEDS: ASPIRIN EC 81 MG TABLET PO SCH (10:25)
[2018-12-19] MEDS: predniSONE 5 MG TABLET PO SCH (10:25)
[2018-12-19] MEDS: FOLIC ACID 1 MG TABLET PO SCH (10:25)
[2018-12-19] MEDS: METOPROLOL TARTRATE 50 MG TABLET PO SCH ×2 (10:25→21:14)
[2018-12-19] MEDS: GABAPENTIN 600 MG TABLET PO SCH ×3 (10:25→21:14)
[2018-12-19] MEDS: ENALAPRIL 10 MG TABLET PO SCH (10:26)
[2018-12-19] MEDS: LANSOPRAZOLE ODT 30 MG TABLET PER TUBE SCH (10:26)
[2018-12-19 10:27] LABS: Albumin 2.8 G/DL (3.4-5.0); Bilirubin,Total 0.5 MG/DL (0.2-1.0); Calcium 8.6 MG/DL (8.5-10.1); Osmolality,Calculated 274.8 MOS/KG (273-304); Total Protein 6.6 G/DL (6.4-8.3)
[2018-12-19] MEDS: DICLOFENAC 1% GEL 100 GM TUBE TOP SCH ×3 (10:27→21:15)
[2018-12-19] MEDS: POTASSIUM CHLORIDE 20 MEQ TABLET PO SCH (10:31)
[2018-12-19] MEDS: LIDOCAINE 5% PATCH TRANSDERM SCH (16:08)
[2018-12-19] MEDS: FUROSEMIDE 40 MG/4 ML VIAL IV SCH (16:09)
[2018-12-19] MEDS: tiZANidine 4 MG TABLET PO SCH (21:14)
[2018-12-19] MEDS: diphenhydrAMINE CAP 50 MG CAPSULE PO SCH (21:14)
[2018-12-19] MEDS: TAMSULOSIN 0.4 MG CAPSULE PO SCH (21:14)
[2018-12-19] MEDS: ROSUVASTATIN 20 MG TABLET PO SCH (21:14)
[2018-12-19] MEDS: MIRTAZAPINE 15 MG TABLET PO SCH (21:14)
[2018-12-19] MEDS: KETOROLAC 15 MG/1 ML VIAL IV PRN (21:22)
[2018-12-20 04:27] LABS: Basophils # 0.1 10*3/uL (0.0-0.2); Basophils % 1.3 % (0.0-0.8); Eosinophils # 0.2 10*3/uL (0.0-0.87); Eosinophils % 3.8 % (0.00-10.9); Hematocrit 27.1 VOL% (42.0-52.0); Hemoglobin 8.6 GM/DL (14.0-18.0); Immature Granulocytes % 0.3 %; Immature Granulocytes Absolute 0.02 #; Lymphocytes # 1.7 10*3/uL (1.4-4.0); Lymphocytes % 28.3 % (21.2-54.2); Mean Corpuscular HGB Conc 31.7 GM/DL (32-36); Mean Corpuscular Volume 89.4 FL (87-102); Mean Platelet Volume 10.3 FL (9.6-12.0); Monocytes % 9.8 % (1.7-12.7); Neutrophils % 56.5 % (38.7-73.9); Platelet Count 243 T/CUMM (130-400); Red Blood Count 3.03 MC/CUMM (3.8-5.5); Red Cell Distribution Width 16.1 % (9.3-17.3); White Blood Count 6.1 T/CUMM (4-12)
[2018-12-20 05:02] LABS: Osmolality,Calculated 272.8 MOS/KG (273-304)
[2018-12-20] MEDS: LEVOTHYROXINE 75 MCG TABLET PO SCH (06:23)
[2018-12-20] MEDS: INSULIN LISPRO 100 UNIT/ML SUBCUT SCH ×4 (09:11→20:50)
[2018-12-20] MEDS: POTASSIUM CHLORIDE 20 MEQ TABLET PO SCH (09:12)
[2018-12-20] MEDS: FOLIC ACID 1 MG TABLET PO SCH (09:12)
[2018-12-20] MEDS: GABAPENTIN 600 MG TABLET PO SCH ×3 (09:12→20:50)
[2018-12-20] MEDS: ASPIRIN EC 81 MG TABLET PO SCH (09:12)
[2018-12-20] MEDS: FUROSEMIDE 40 MG/4 ML VIAL IV SCH ×2 (09:13→16:57)
[2018-12-20] MEDS: predniSONE 5 MG TABLET PO SCH (09:13)
[2018-12-20] MEDS: DABIGATRAN 150 MG CAPSULE PO SCH ×2 (09:13→20:49)
[2018-12-20] MEDS: METOPROLOL TARTRATE 50 MG TABLET PO SCH ×2 (09:13→20:49)
[2018-12-20] MEDS: ENALAPRIL 10 MG TABLET PO SCH (09:13)
[2018-12-20] MEDS: LANSOPRAZOLE ODT 30 MG TABLET PER TUBE SCH (09:13)
[2018-12-20] MEDS: LIDOCAINE 5% PATCH TRANSDERM SCH (09:14)
[2018-12-20] MEDS: DICLOFENAC 1% GEL 100 GM TUBE TOP SCH ×3 (09:19→20:50)
[2018-12-20] MEDS: TAMSULOSIN 0.4 MG CAPSULE PO SCH (20:49)
[2018-12-20] MEDS: ROSUVASTATIN 20 MG TABLET PO SCH (20:49)
[2018-12-20] MEDS: tiZANidine 4 MG TABLET PO SCH (20:49)
[2018-12-20] MEDS: MIRTAZAPINE 15 MG TABLET PO SCH (20:49)
[2018-12-20] MEDS: diphenhydrAMINE CAP 50 MG CAPSULE PO SCH (20:50)
[2018-12-20] MEDS: KETOROLAC 15 MG/1 ML VIAL IV PRN (20:53)
[2018-12-21 05:15] LABS: Basophils # 0.1 10*3/uL (0.0-0.2); Basophils % 0.7 % (0.0-0.8); Eosinophils # 0.2 10*3/uL (0.0-0.87); Eosinophils % 3.3 % (0.00-10.9); Hematocrit 27.9 VOL% (42.0-52.0); Hemoglobin 8.7 GM/DL (14.0-18.0); Immature Granulocytes % 0.5 %; Immature Granulocytes Absolute 0.04 #; Lymphocytes # 1.8 10*3/uL (1.4-4.0); Mean Corpuscular HGB Conc 31.2 GM/DL (32-36); Mean Corpuscular Volume 90.6 FL (87-102); Mean Platelet Volume 10.1 FL (9.6-12.0); Neutrophils % 60.5 % (38.7-73.9); Platelet Count 246 T/CUMM (130-400); Red Blood Count 3.08 MC/CUMM (3.8-5.5); Red Cell Distribution Width 16.2 % (9.3-17.3); White Blood Count 7.3 T/CUMM (4-12)
[2018-12-21 05:26] LABS: Calcium 7.7 MG/DL (8.5-10.1); Osmolality,Calculated 275.8 MOS/KG (273-304)
[2018-12-21] MEDS: LEVOTHYROXINE 75 MCG TABLET PO SCH (05:57)
[2018-12-21] MEDS: INSULIN LISPRO 100 UNIT/ML SUBCUT SCH ×2 (07:48→12:35)
[2018-12-21] MEDS ORDERED: FUROSEMIDE 40 MG TABLET PO SCH (08:00)
[2018-12-21] MEDS: GABAPENTIN 600 MG TABLET PO SCH (08:22)
[2018-12-21] MEDS: METOPROLOL TARTRATE 50 MG TABLET PO SCH (08:24)
[2018-12-21] MEDS: DABIGATRAN 150 MG CAPSULE PO SCH (08:24)
[2018-12-21] MEDS: POTASSIUM CHLORIDE 20 MEQ TABLET PO SCH (08:25)
[2018-12-21] MEDS: ASPIRIN EC 81 MG TABLET PO SCH (08:25)
[2018-12-21] MEDS: predniSONE 5 MG TABLET PO SCH (08:26)
[2018-12-21] MEDS: FOLIC ACID 1 MG TABLET PO SCH (08:26)
[2018-12-21] MEDS: ENALAPRIL 10 MG TABLET PO SCH (08:26)
[2018-12-21] MEDS: LANSOPRAZOLE ODT 30 MG TABLET PER TUBE SCH (08:27)
[2018-12-21] MEDS: LIDOCAINE 5% PATCH TRANSDERM SCH (08:28)
[2018-12-21] MEDS: DICLOFENAC 1% GEL 100 GM TUBE TOP SCH (08:31)
[2018-12-21 08:46] VITALS: BP 137/74
[2018-12-21] MEDS: NITROGLYCERIN SL 0.4 MG TABLET SL PRN (10:36)
== END 2018-12-21 15:18 | disposition swing bed (61) | DRG 286 ==
LOC: EDUNIT# → N.ED 17:17 → SUATTDRO 21:34 → N.EDINP 21:34 → N.5E 22:05 → N.CC 12-10 00:58 → N.5E 12-13 15:29
PROVIDERS: ADMIT Hospitalist; ATTEND Hospitalist